=== PATIENT | female | born 1980 | race Asian ===

== ENCOUNTER 2016-07-08 10:36 | Emergency (ER) | payer OTHER ==
[~2016-07-08 10:36] MED LIST: CALTCHW6 PO; COLA100C PO; DOCU10ELUD PO; IBUP80TA PO; LEVO50TA4 PO; LEVO88TA2 PO; PERCOCET FT; PERCOCET PO; PRENTAB66 PO; SYNT25TA PO; ZOFR4SOL PO; [UNRECOGNIZED DRUG - CODE] PO; colace PO
[2016-07-08 12:28] LABS: BASO % 0.5 % (0.0-1.0); EOS # 0.1 K/mm3 (0.0-0.50); EOS % 1.6 % (0.0-3.0); LARGE UNSTAINED CELL # 0.2 K/mm3 (0.0-0.4); LARGE UNSTAINED CELL % 1.8 % (0.0-4.0); LYMPH # 2.8 K/mm3 (1.5-4.5); LYMPH % 33.7 % (24.0-44.0); MEAN CORPUSCULAR HGB CONC 35.4 g/dl (32.0-36.5); MEAN CORPUSCULAR VOLUME 93.1 fl (80.0-96.0); MONO # 0.2 K/mm3 (0.0-0.8); MONO % 2.9 % (0.0-5.0); NEUTROPHILS # 4.9 K/mm3 (1.8-7.7); NEUTROPHILS % 59.5 % (36.0-66.0); PLATELET COUNT, AUTOMATED 227 k/mm3 (150-450); RED CELL DISTRIBUTION WIDTH 11.3 % (11.5-14.5); WHITE BLOOD COUNT 8.2 K/mm3 (4.0-10.0)
[2016-07-08] MEDS ORDERED: KETOROLAC 30 MG/ML VIAL (J1885) As Ordered ONE (12:35)
[2016-07-08] MEDS ORDERED: ONDANSETRON 4MG/2ML VIAL (J2405) As Ordered ONE (12:35)
[2016-07-08 12:36] LABS: ALBUMIN 3.9 GM/DL (3.2-5.2); ALBUMIN/GLOBULIN RATIO 0.89 (1.00-1.93); ALKALINE PHOSPHATASE 73 U/L (45-117); ALT/SGPT 16 U/L (12-78); ANION GAP 8 MEQ/L (8-16); AST/SGOT 16 U/L (15-37); BILIRUBIN,TOTAL 0.5 MG/DL (0.2-1.0); BLOOD UREA NITROGEN 8 MG/DL (7-18); CALCIUM LEVEL 8.6 MG/DL (8.5-10.1); CARBON DIOXIDE LEVEL 25 MEQ/L (21-32); CHLORIDE LEVEL 105 MEQ/L (98-107); CREATININE FOR GFR 0.81 MG/DL (0.55-1.02); GLOMERULAR FILTRATION RATE > 60.0 (>60); GLUCOSE, FASTING 86 MG/DL (70-105); POTASSIUM SERUM 3.9 MEQ/L (3.5-5.1); SODIUM LEVEL 138 MEQ/L (136-145); TOTAL PROTEIN 8.3 GM/DL (6.4-8.2)
--- NOTE | 2016-07-08 13:12 | REP ---
CT abdomen pelvis without IV or oral contrast: Renal stone protocol. History: Renal colic. No comparison studies. Findings: Preliminary rubber boots and shoes repairer radiograph demonstrates an unremarkable bowel gas pattern. The lung bases are clear on axial CT images. There are three small subcentimeter low density foci in the right lobe compatible with small hepatic cysts. The spleen is unremarkable. Neither liver or spleen is enlarged. Adrenal glands are normal bilaterally. No pancreatic abnormality is seen. The gallbladder is unremarkable. There is no evidence of hydronephrosis or intrarenal calculus in either kidney. No ureteral calculus or bladder calculus is seen. There are multiple pelvic phleboliths. No uterine abnormality is seen. There is a small cystic area in the left ovary. Normal right ovary is seen. No significant pelvic mass or adenopathy is seen. Small and large intestinal bowel loops are normal in the abdomen and pelvis. A normal appendix is seen in the right pelvis. No abdominal wall defect is seen. Bone window settings show no bony destructive lesion. Impression: No urinary tract calculus or hydronephrosis seen. Small hepatic cysts seen incidentally. Normal appendix noted. No acute abdominal or pelvic abnormality. Signed by David Goodman MD 07/08/2016 06:35 P
--- NOTE | 2016-07-08 13:30 | REP ---
Abdominal right upper quadrant ultrasound: There is a negative Alvarado's sign to transducer pressure. There is no cholelithiasis, gallbladder wall thickening or pericholecystic fluid. There is no intrahepatic or extrahepatic biliary duct dilatation. The common duct is 6.2 mm diameter. The hepatic parenchyma is homogeneous. Too small hepatic cysts, one measuring up to 10 mm and the other measuring up to 6 mm. The right kidney is normal size measuring 9.9 cm craniocaudad length. There is no hydronephrosis, calculus, mass or cyst. Impression: Essentially negative abdominal right upper quadrant ultrasound. Two hepatic cysts are noted incidentally. There is no free fluid in the right upper quadrant. Signed by Dominic Ríos MD 07/08/2016 01:21 P
--- NOTE | 2016-07-08 14:48 | EDDOCDS ---
Physician Documentation [facility] Name: Alice Corrales Age: 35 yrs Sex: Female : 1980 Arrival Date: 07/08/2016 Time: 10:36 Bed I2 / M2 Private MD: ANYA Disposition: 07/08/16 14:25 Discharged to Home/Self Care. Impression: Abdominal and pelvic pain - with Right Flank Pain, Cystic disease of liver - Small Hepatic Cysts on CT abd/pelvis, Hematuria. - Condition is Stable. - Discharge Instructions: Hematuria, Adult, Pelvic Pain, Female, [id number], Abdominal Pain, Adult, [id number]. - Prescriptions for Naprosyn 500 mg Oral Tablet - take 1 tablet by ORAL route 2 times per day take with food; 30 tablet. Zofran 4 mg Oral Tablet - take 1 tablet by ORAL route 4 times per day As needed; 10 tablet. - Medication Reconciliation, Local Pharmacy Hours form. - Follow up: ANYA; When: 1 - 2 days; Reason: Recheck today's complaints, Continuance of care. Follow up: Emergency Department; Reason: Worsening of conditions. Follow up: Clinton Abernathy; When: Call to arrange an appointment; Reason: Further diagnostic work-up, Recheck today's complaints, Continuance of care. Follow up: Gino Tirado; When: Call to arrange an appointment; Reason: Further diagnostic work-up, Recheck today's complaints, Continuance of care. - Problem is new. - Symptoms have improved. Historical: - Allergies: Augmentin; amoxicillin; PENICILLINS; - Home Meds: 1. Zyrtec 10 mg Oral tab 1 tab once daily 2. Wellbutrin 100 mg Oral tab daily 3. guaifenesin 400 mg Oral tab 1 tab every 4 hours 4. nortriptyline 25 mg Oral cap nightly - PMHx: Seasonal Allergies; Migraines; - PSHx: Right ankle surgery x 2; Breast Augmentation; Tonsillectomy; ; ectopic; - Social history: Smoking status: Patient states former smoker of tobacco. No barriers to communication noted, The patient speaks fluent Faroese, Speaks appropriately for age. - Family history: Not pertinent. - : The pt / caregiver states he / she is not on anticoagulants. Home medication list is obtained from the patient. - Exposure Risk Screening:: None identified. SCORER SINGLE: 07/08 10:52 LMP 06/13/2016 mlb1 Vital Signs: 10:37 BP 122 / 76; Pulse 96; Resp 18; Temp 97.8; Pulse Ox 96% ; Weight 73.48 kg / 162 lbs; elp Height 5 ft. 5 in. (165.10 cm); Pain 7/10; 14:40 BP 99 / 55; Pulse 66; Resp 18; Temp 97.6(TE); Pulse Ox 98% on R/A; Pain 0/10; nb2 10:37 Body Mass Index 26.96 (73.48 kg, 165.10 cm) elp MDM: 11:35 UCG by Nursing ordered. ef1 11:36 UA Ordered. EDMS 11:36 Urine Culture Ordered. EDMS 12:09 UA Reviewed. ef1 12:17 IV Saline Lock ordered. ef1 12:17 NS 0.9% 1000 ml IV at bolus once ordered. ef1 12:17 ketorolac 30 mg IVP once ordered. ef1 12:17 Ondansetron 4 mg IVP once ordered. ef1 12:18 CT ABD & PELVIS: No Contrast Ordered. EDMS 12:18 CBC with Diff Ordered. EDMS 12:18 Complete Comphrensive Metabolic Ordered. EDMS 12:19 Gallbladder US Ordered. EDMS 12:36 Financial registration complete. mm15 12:36 [facility] [place] into [employer] and attached to record. mm15 12:58 CBC with Diff Reviewed. ef1 12:58 Complete Comphrensive Metabolic Reviewed. ef1 14:29 CT ABD & PELVIS: No Contrast Reviewed. ef1 14:29 Gallbladder US Reviewed. ef1 Point of Care Testing: Urine : 11:48 hCG Reading: Negative; Control Reading: Positive; nb2 Ranges: Administered Medications: 12:40 Drug: NS 0.9% 1000 ml [sodium chloride 0.9 % intravenous solution] Route: IV; Rate: ead bolus; Site: right antecubital; 14:46 Follow up: IV Status: Completed infusion [facility] 12:40 Drug: ketorolac 30 mg [ketorolac 30 mg/mL (1 mL) injection solution (1 mL)] Route: IVP; ead Site: right antecubital; 12:42 Drug: Ondansetron 4 mg [ondansetron HCl 2 mg/mL intravenous solution (2 mL)] Route: ead IVP; Site: right antecubital; Signatures: Dispatcher [employer] Cabrera BriggsRN RN Yossi Keyes RN RN mlb1 Fabiana Paiz PAEloyC PAFrancis ef1 Tanmay Bishop mm15 Emi Haywood RN, ead The chart was reviewed and I authenticate all verbal orders and agree with the evaluation and treatment provided.Attachments: 12:36 [facility] Payment Agreement mm15 MTDD
--- NOTE | 2016-07-08 14:48 | EDDOCDS ---
Nurse's Notes [facility] Name: Alice Corrales Age: 35 yrs Sex: Female : 1980 Arrival Date: 07/08/2016 Time: 10:36 Bed I2 / M2 Private MD: ANYA Diagnosis: Abdominal and pelvic pain-with Right Flank Pain;Cystic disease of liver-Small Hepatic Cysts on CT abd/pelvis;Hematuria Presentation: 07/08 10:47 Presenting complaint: Patient states: Suprapubic pain began yesterday worse with mlb1 coughing. Adult Sepsis Screening: The patient does not have new or worsening altered mentation. Patient's respiratory rate is less than 22. Systolic blood pressure is greater than 100. Patient has a qSOFA score of 0- Negative Sepsis Screen. Suicide/Homicide risk assessment- the patient denies having any suicidal and/or homicidal ideations and does not present with any other emotional, behavioral or mental health complaints. 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 Transition of care: patient was not received from another setting of care. 10:47 Acuity: ELISEO Level 3 mlb1 10:47 Method Of Arrival: Walkin/Carried/Asstd mlb1 Triage Assessment: 10:51 General: Appears in no apparent distress, Behavior is appropriate for age, cooperative. mlb1 Pain: Location: suprapubic area Pain currently is 2 out of 10 on a pain scale. HIV screening NA for this visit Offered previously. : Reports discharge white. MEDICAL TECHNOLOGIST BLOOD BANK: 10:52 LMP 06/13/2016 mlb1 Historical: - Allergies: Augmentin; amoxicillin; PENICILLINS; - Home Meds: 1. Zyrtec 10 mg Oral tab 1 tab once daily 2. Wellbutrin 100 mg Oral tab daily 3. guaifenesin 400 mg Oral tab 1 tab every 4 hours 4. nortriptyline 25 mg Oral cap nightly - PMHx: Seasonal Allergies; Migraines; - PSHx: Right ankle surgery x 2; Breast Augmentation; Tonsillectomy; ; ectopic; - Social history: Smoking status: Patient states former smoker of tobacco. No barriers to communication noted, The patient speaks fluent Malawian, Speaks appropriately for age. - Family history: Not pertinent. - : The pt / caregiver states he / she is not on anticoagulants. Home medication list is obtained from the patient. - Exposure Risk Screening:: None identified. Screenin:47 Screening information is obtained from the patient. Fall risk: No risks identified. jmk Assistance ADL's: requires no assistance with activities of daily living. Abuse/DV Screen: The patient / caregiver reports he/she is: not in a situation that causes fear, pain or injury. Nutritional screening: No deficits noted. Advance Directives: Currently, there is no health care proxy. There is no active DNR order. There is no living will. There is no Power of Green Chain Worker. Advance directive information has not previously been placed in an [facility] medical record. Further advance directive information is declined. home support is adequate. Assessment: 11:52 General: Appears in no apparent distress, comfortable, well nourished, well groomed, ead Behavior is appropriate for age, cooperative. Pain: Location: abdomen and suprapubic area Pain currently is 4 out of 10 on a pain scale. At worst was 7 out of 10 on a pain scale. Neurological: No deficits noted. GI: Abdomen is flat, non- distended Bowel sounds present X 4 quads. Abd is soft X 4 quads Abd is tender to palpation in suprapubic area and left lower quadrant Reports lower abdominal pain, nausea, Denies diarrhea, vomiting. : Denies burning with urination, urinary frequency, urgency. Derm: Skin is pink, warm & dry. 12:43 General: Appears in no apparent distress, comfortable, Behavior is appropriate for age, ead cooperative. Pain: Pain currently is 4 out of 10 on a pain scale. GI: Reports lower abdominal pain, Denies nausea, vomiting. Derm: Skin is pink, warm & dry. 13:39 General: states pain has decreased to more of an awareness vs a pain. states 2/10 jmk discomfort only with specific movement.. Vital Signs: 10:37 BP 122 / 76; Pulse 96; Resp 18; Temp 97.8; Pulse Ox 96% ; Weight 73.48 kg; Height 5 ft. elp 5 in. (165.10 cm); Pain 7/10; 14:40 BP 99 / 55; Pulse 66; Resp 18; Temp 97.6(TE); Pulse Ox 98% on R/A; Pain 0/10; nb2 10:37 Body Mass Index 26.96 (73.48 kg, 165.10 cm) elp Vitals: 10:37 Log In Time: July 08, 2016 at 10:30. elp ED Course: 10:37 Patient visited by Clair Lerma PCA. elp 10:37 ANYA is Private Physician. elp 10:37 Patient moved to Waiting elp 10:38 Patient visited by Clair Lerma PCA. elp 10:40 Patient moved to Pre RCE elp 10:47 Patient visited by Yossi Moncada, RN. mlb1 10:48 Triage Initiated mlb1 10:52 Patient visited by Yossi Moncada, JORDON. mlb1 11:34 Fabiana Paiz PA-C is [facility]. ef1 11:34 Yvette Mccormick MD is Attending Physician. ef1 11:35 Patient visited by Fabiana Paiz PA-C. ef1 11:35 Patient moved to I2 / M2 ef1 11:48 Patient visited by Mirta Ball. nb2 11:48 Urine Culture Sent. nb2 11:48 UA Sent. nb2 11:51 Inserted saline lock: 20 gauge in right antecubital area and blood collected. The ead patient tolerated the procedure well. 12:08 Patient visited by Fabiana Paiz PA-C. ef1 12:35 Patient visited by Emi Haywood RN. ead 12:36 COUNTS INCLUDE 234 BEDS AT THE [facility] Payment Agreement was scanned into [employer] and attached to record. mm15 12:44 Patient visited by Emi Haywood,JORDON. ead 12:57 Patient visited by Fabiana Paiz PA-C. ef1 13:34 CT ABD & PELVIS: No Contrast Returned. EDMS 13:35 Patient visited by Fabiana Paiz PA-C. ef1 13:35 Gallbladder US Returned. EDMS 13:41 Patient visited by Cabrera Person,JORDON. jmk 14:19 Patient visited by Fabiana Paiz PA-C. ef1 14:23 ANYA is Referral Physician. ef1 14:23 Clinton Abernathy is Referral Physician. ef1 14:28 Gino Tirado is Referral Physician. ef1 14:40 Patient visited by Mirta Ball. nb2 14:46 Discontinued lock intact, bleeding controlled, pressure dressing applied, No jmk redness/swelling at site. No procedures done that require assistance. Administered Medications: 12:40 Drug: NS 0.9% 1000 ml [sodium chloride 0.9 % intravenous solution] Route: IV; Rate: ead bolus; Site: right antecubital; 14:46 Follow up: IV Status: Completed infusion [facility] 12:40 Drug: ketorolac 30 mg [ketorolac 30 mg/mL (1 mL) injection solution (1 mL)] Route: IVP; ead Site: right antecubital; 12:42 Drug: Ondansetron 4 mg [ondansetron HCl 2 mg/mL intravenous solution (2 mL)] Route: ead IVP; Site: right antecubital; Point of Care Testing: Urine : 11:48 hCG Reading: Negative; Control Reading: Positive; nb2 Ranges: Order Results: Lab Order: UA; SPEC'M 07/08/16 11:42 Test: APPEARANCE, URINE; Value: CLEAR; Range: CLEAR; Status: F Test: COLOR, URINE; Value: YELLOW; Range: YELLOW; Status: F Test: PH,URINE; Value: 6.0; Range: 5.0-9.0; Units: UNITS; Status: F Test: SPECIFIC GRAVITY URINE AUTO; Value: 1.006; Range: 1.002-1.035; Status: F Test: PROTEIN, URINE AUTO; Value: NEGATIVE; Range: NEGATIVE; Units: mg/dL; Status: F Test: GLUCOSE, URINE (UA) AUTO; Value: NEGATIVE; Range: NEGATIVE; Units: mg/dL; Status: F Test: KETONE, URINE AUTO; Value: NEGATIVE; Range: NEGATIVE; Units: mg/dL; Status: F Test: UROBILINOGEN, URINE AUTO; Value: 0.2; Range: 0.0-2.0; Units: mg/dL; Status: F Test: BILIRUBIN, URINE AUTO; Value: NEGATIVE; Range: NEGATIVE; Status: F Test: NITRITE, URINE AUTO; Value: NEGATIVE; Range: NEGATIVE; Status: F Test: LEUKOCYTE ESTERASE, URINE AUTO; Value: TRACE; Range: NEGATIVE; Abnormal: Above high normal; Status: F Test: BLOOD, URINE BLOOD; Value: 1+; Range: NEGATIVE; Abnormal: Above high normal; Status: F Test: WBC, URINE AUTO; Value: 2; Range: 0-3; Units: /HPF; Status: F Test: RBC, URINE AUTO; Value: 2; Range: 0-3; Units: /HPF; Status: F Test: BACTERIA, URINE AUTO; Value: NEGATIVE; Range: NEGATIVE; Status: F Test: SQUAMOUS EPITHELIAL CELL UR AU; Value: 1; Range: 0-6; Units: /HPF; Status: F Test: HYALINE CAST, URINE AUTO; Value: 0; Range: 0-1; Units: /LPF; Status: F Lab Order: CBC with Diff; SPEC'M 07/08/16 11:49 Test: WHITE BLOOD COUNT; Value: 8.2; Range: 4.0-10.0; Units: K/mm3; Status: F Test: RED BLOOD COUNT; Value: 4.51; Range: 4.00-5.40; Units: M/mm3; Status: F Test: HEMOGLOBIN; Value: 14.9; Range: 12.0-16.0; Units: g/dl; Status: F Test: HEMATOCRIT; Value: 41.9; Range: 36.0-47.0; Units: %; Status: F Test: MEAN CORPUSCULAR VOLUME; Value: 93.1; Range: 80.0-96.0; Units: fl; Status: F Test: MEAN CORPUSCULAR HEMOGLOBIN; Value: 33.0; Range: 27.0-33.0; Units: pg; Status: F Test: MEAN CORPUSCULAR HGB CONC; Value: 35.4; Range: 32.0-36.5; Units: g/dl; Status: F Test: RED CELL DISTRIBUTION WIDTH; Value: 11.3; Range: 11.5-14.5; Abnormal: Below low normal; Units: %; Status: F Test: PLATELET COUNT, AUTOMATED; Value: 227; Range: 150-450; Units: k/mm3; Status: F Test: NEUTROPHILS %; Value: 59.5; Range: 36.0-66.0; Units: %; Status: F Test: LYMPH %; Value: 33.7; Range: 24.0-44.0; Units: %; Status: F Test: MONO %; Value: 2.9; Range: 0.0-5.0; Units: %; Status: F Test: EOS %; Value: 1.6; Range: 0.0-3.0; Units: %; Status: F Test: BASO %; Value: 0.5; Range: 0.0-1.0; Units: %; Status: F Test: LARGE UNSTAINED CELL %; Value: 1.8; Range: 0.0-4.0; Units: %; Status: F Test: NEUTROPHILS #; Value: 4.9; Range: 1.8-7.7; Units: K/mm3; Status: F Test: LYMPH #; Value: 2.8; Range: 1.5-4.5; Units: K/mm3; Status: F Test: MONO #; Value: 0.2; Range: 0.0-0.8; Units: K/mm3; Status: F Test: EOS #; Value: 0.1; Range: 0.0-0.50; Units: K/mm3; Status: F Test: BASO #; Value: 0.0; Range: 0.0-0.2; Units: K/mm3; Status: F Test: LARGE UNSTAINED CELL #; Value: 0.2; Range: 0.0-0.4; Units: K/mm3; Status: F Lab Order: Complete Comphrensive Metabolic; SPEC'M 07/08/16 11:49 Test: GLUCOSE, FASTING; Value: 86; Range: 70-105; Units: MG/DL; Status: F Test: BLOOD UREA NITROGEN; Value: 8; Range: 7-18; Units: MG/DL; Status: F Test: CREATININE FOR GFR; Value: 0.81; Range: 0.55-1.02; Units: MG/DL; Status: F Test: GLOMERULAR FILTRATION RATE; Value: > 60.0; Range: >60; Status: F Test: SODIUM LEVEL; Value: 138; Range: 136-145; Units: MEQ/L; Status: F Test: POTASSIUM SERUM; Value: 3.9; Range: 3.5-5.1; Units: MEQ/L; Status: F Test: CHLORIDE LEVEL; Value: 105; Range: 98-107; Units: MEQ/L; Status: F Test: CARBON DIOXIDE LEVEL; Value: 25; Range: 21-32; Units: MEQ/L; Status: F Test: ANION GAP; Value: 8; Range: 8-16; Units: MEQ/L; Status: F Test: CALCIUM LEVEL; Value: 8.6; Range: 8.5-10.1; Units: MG/DL; Status: F Test: AST/SGOT; Value: 16; Range: 15-37; Units: U/L; Status: F Test: ALT/SGPT; Value: 16; Range: 12-78; Units: U/L; Status: F Test: ALKALINE PHOSPHATASE; Value: 73; Range: 45-117; Units: U/L; Status: F Test: BILIRUBIN,TOTAL; Value: 0.5; Range: 0.2-1.0; Units: MG/DL; Status: F Test: TOTAL PROTEIN; Value: 8.3; Range: 6.4-8.2; Abnormal: Above high normal; Units: GM/DL; Status: F Test: ALBUMIN; Value: 3.9; Range: 3.2-5.2; Units: GM/DL; Status: F Test: ALBUMIN/GLOBULIN RATIO; Value: 0.89; Range: 1.00-1.93; Abnormal: Below low normal; Status: F Test Note: ; Units are mL/min/1.73 m2 Chronic Kidney Disease Staging per NKF: Stage I & II GFR >=60 Normal to Mildly Decreased Stage III GFR 30-59 Moderately Decreased Stage IV GFR 15-29 Severely Decreased Stage V GFR <15 Very Little GFR Left ESRD GFR <15 on ELECTRONICS PARTS SALES REPRESENTATIVE Radiology Order: CT ABD & PELVIS: No Contrast Test: CT ABD & PELVIS: No Contrast REASON FOR EXAMINATION: Renal colic; CT abdomen pelvis without IV or oral contrast: Renal stone protocol.; ; History: Renal colic. No comparison studies.; ; Findings: Preliminary care transitions nurse radiograph demonstrates an unremarkable bowel gas; pattern. The lung bases are clear on axial CT images. There are three small; subcentimeter low density foci in the right lobe compatible with small hepatic; cysts. The spleen is unremarkable. Neither liver or spleen is enlarged.; Adrenal glands are normal bilaterally. No pancreatic abnormality is seen. The; gallbladder is unremarkable. There is no evidence of hydronephrosis or; intrarenal calculus in either kidney. No ureteral calculus or bladder calculus; is seen. There are multiple pelvic phleboliths. No uterine abnormality is seen.; There is a small cystic area in the left ovary. Normal right ovary is seen. No; significant pelvic mass or adenopathy is seen. Small and large intestinal bowel; loops are normal in the abdomen and pelvis. A normal appendix is seen in the; right pelvis. No abdominal wall defect is seen. Bone window settings show no; bony destructive lesion.; ; Impression:; ; No urinary tract calculus or hydronephrosis seen. Small hepatic cysts seen; incidentally. Normal appendix noted. No acute abdominal or pelvic abnormality.; ; ; ; ; Unreviewed; Radiology Order: Gallbladder US Test: Gallbladder US REASON FOR EXAMINATION: Biliary Colic; Abdominal right upper quadrant ultrasound:; ; There is a negative Alvarado's sign to transducer pressure. There is no; cholelithiasis, gallbladder wall thickening or pericholecystic fluid. There is; no intrahepatic or extrahepatic biliary duct dilatation. The common duct is 6.2; mm diameter.; ; The hepatic parenchyma is homogeneous. Too small hepatic cysts, one measuring up; to 10 mm and the other measuring up to 6 mm.; ; The right kidney is normal size measuring 9.9 cm craniocaudad length. There is; no hydronephrosis, calculus, mass or cyst.; ; Impression:; ; Essentially negative abdominal right upper quadrant ultrasound. Two hepatic; cysts are noted incidentally. There is no free fluid in the right upper; quadrant.; ; ; Signed by; Dominic Ríos MD 07/08/2016 01:21 P; Outcome: 14:25 Discharge ordered by Provider. ef1 14:46 Discharge Assessment: Patient awake, alert and oriented x 3. No cognitive and/or jmk functional deficits noted. Patient verbalized understanding of disposition instructions. patient administered narcotics - no. The following High Risk Discharge criteria are identified: None. Condition: good. Discharge instructions given to patient, Instructed on discharge instructions, follow up and referral plans. medication usage, Demonstrated understanding of instructions, medications, Pt was receptive of discharge instructions/ teaching. No special radiology studies were completed. Property :Personal belongings accompany Pt. 14:48 Patient left the ED. ross Signatures: Dispatcher [employer] EDMS Cabrera PersonRN Yossi Suarez RN RN mlb1 Fabiana Paiz, PA-C PA-C ef1 Tanmay Bishop mm15 Clair Lerma, ALENA GAME PROGRAMMER Emi Bardales RN RN ead Baart, Nicole nb2 MTDD
--- NOTE | 2016-07-10 15:49 | EDDOCDS ---
Physician Documentation [facility] Name: Alice Corrales Age: 35 yrs Sex: Female : 1980 Arrival Date: 07/08/2016 Time: 10:36 Bed I2 / M2 Private MD: ANYA Disposition: 07/08/16 14:25 Discharged to Home/Self Care. Impression: Abdominal and pelvic pain - with Right Flank Pain, Cystic disease of liver - Small Hepatic Cysts on CT abd/pelvis, Hematuria. - Condition is Stable. - Discharge Instructions: Hematuria, Adult, Pelvic Pain, Female, [id number], Abdominal Pain, Adult, [id number]. - Prescriptions for Naprosyn 500 mg Oral Tablet - take 1 tablet by ORAL route 2 times per day take with food; 30 tablet. Zofran 4 mg Oral Tablet - take 1 tablet by ORAL route 4 times per day As needed; 10 tablet. - Medication Reconciliation, Local Pharmacy Hours form. - Follow up: ANYA; When: 1 - 2 days; Reason: Recheck today's complaints, Continuance of care. Follow up: Emergency Department; Reason: Worsening of conditions. Follow up: Clinton Abernathy; When: Call to arrange an appointment; Reason: Further diagnostic work-up, Recheck today's complaints, Continuance of care. Follow up: Gino Tirado; When: Call to arrange an appointment; Reason: Further diagnostic work-up, Recheck today's complaints, Continuance of care. - Problem is new. - Symptoms have improved. Historical: - Allergies: Augmentin; amoxicillin; PENICILLINS; - Home Meds: 1. Zyrtec 10 mg Oral tab 1 tab once daily 2. Wellbutrin 100 mg Oral tab daily 3. guaifenesin 400 mg Oral tab 1 tab every 4 hours 4. nortriptyline 25 mg Oral cap nightly - PMHx: Seasonal Allergies; Migraines; - PSHx: Right ankle surgery x 2; Breast Augmentation; Tonsillectomy; ; ectopic; - Social history: Smoking status: Patient states former smoker of tobacco. No barriers to communication noted, The patient speaks fluent Persian, Speaks appropriately for age. - Family history: Not pertinent. - : The pt / caregiver states he / she is not on anticoagulants. Home medication list is obtained from the patient. - Exposure Risk Screening:: None identified. 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 5 in. (165.10 cm); Pain 7/10; 14:40 BP 99 / 55; Pulse 66; Resp 18; Temp 97.6(TE); Pulse Ox 98% on R/A; Pain 0/10; nb2 10:37 Body Mass Index 26.96 (73.48 kg, 165.10 cm) elp MDM: 11:35 UCG by Nursing ordered. ef1 11:36 UA Ordered. EDMS 11:36 Urine Culture Ordered. EDMS 12:09 UA Reviewed. ef1 12:17 IV Saline Lock ordered. ef1 12:17 NS 0.9% 1000 ml IV at bolus once ordered. ef1 12:17 ketorolac 30 mg IVP once ordered. ef1 12:17 Ondansetron 4 mg IVP once ordered. ef1 12:18 CT ABD & PELVIS: No Contrast Ordered. EDMS 12:18 CBC with Diff Ordered. EDMS 12:18 Complete Comphrensive Metabolic Ordered. EDMS 12:19 Gallbladder US Ordered. EDMS 12:36 Financial registration complete. mm15 12:36 [facility] was scanned into Clevers[employer] and attached to record. mm15 12:58 CBC with Diff Reviewed. ef1 12:58 Complete Comphrensive Metabolic Reviewed. ef1 14:29 CT ABD & PELVIS: No Contrast Reviewed. ef1 14:29 Gallbladder US Reviewed. ef1 15:31 T-Sheet-- Draft Copy was scanned into Clevers[employer] and attached to record. gb 15:32 Radiology Report was scanned into Clevers[employer] and attached to record. gb Point of Care Testing: Urine : 11:48 hCG Reading: Negative; Control Reading: Positive; nb2 Ranges: Administered Medications: 12:40 Drug: NS 0.9% 1000 ml [sodium chloride 0.9 % intravenous solution] Route: IV; Rate: ead bolus; Site: right antecubital; 14:46 Follow up: IV Status: Completed infusion k 12:40 Drug: ketorolac 30 mg [ketorolac 30 mg/mL (1 mL) injection solution (1 mL)] Route: IVP; ead Site: right antecubital; 12:42 Drug: Ondansetron 4 mg [ondansetron HCl 2 mg/mL intravenous solution (2 mL)] Route: ead IVP; Site: right antecubital; Signatures: Dispatcher [employer] Cabrera Briggs RN RN Yanique Rossi, Suresh Reg Yossi Zeng RN RN mlb1 Fabiana Paiz, PA-C PA-C ef1 Tanmay Bishop mm15 Emi Haywood RN The chart was reviewed and I authenticate all verbal orders and agree with the evaluation and treatment provided.Attachments: 12:36 [facility] Agreement mm15 15:31 T-Sheet-- Draft Copy gb Chart Complete MTDD
--- NOTE | 2016-07-10 15:49 | EDDOCDS ---
Physician Documentation [facility] Name: Alice Corrales Age: 35 yrs Sex: Female : 1980 Arrival Date: 07/08/2016 Time: 10:36 Bed I2 / M2 Private MD: ANYA Disposition: 07/08/16 14:25 Discharged to Home/Self Care. Impression: Abdominal and pelvic pain - with Right Flank Pain, Cystic disease of liver - Small Hepatic Cysts on CT abd/pelvis, Hematuria. - Condition is Stable. - Discharge Instructions: Hematuria, Adult, Pelvic Pain, Female, [id number], Abdominal Pain, Adult, [id number]. - Prescriptions for Naprosyn 500 mg Oral Tablet - take 1 tablet by ORAL route 2 times per day take with food; 30 tablet. Zofran 4 mg Oral Tablet - take 1 tablet by ORAL route 4 times per day As needed; 10 tablet. - Medication Reconciliation, Local Pharmacy Hours form. - Follow up: ANYA; When: 1 - 2 days; Reason: Recheck today's complaints, Continuance of care. Follow up: Emergency Department; Reason: Worsening of conditions. Follow up: Clinton Abernathy; When: Call to arrange an appointment; Reason: Further diagnostic work-up, Recheck today's complaints, Continuance of care. Follow up: Gino Tirado; When: Call to arrange an appointment; Reason: Further diagnostic work-up, Recheck today's complaints, Continuance of care. - Problem is new. - Symptoms have improved. Historical: - Allergies: Augmentin; amoxicillin; PENICILLINS; - Home Meds: 1. Zyrtec 10 mg Oral tab 1 tab once daily 2. Wellbutrin 100 mg Oral tab daily 3. guaifenesin 400 mg Oral tab 1 tab every 4 hours 4. nortriptyline 25 mg Oral cap nightly - PMHx: Seasonal Allergies; Migraines; - PSHx: Right ankle surgery x 2; Breast Augmentation; Tonsillectomy; ; ectopic; - Social history: Smoking status: Patient states former smoker of tobacco. No barriers to communication noted, The patient speaks fluent Occitan, Speaks appropriately for age. - Family history: Not pertinent. - : The pt / caregiver states he / she is not on anticoagulants. Home medication list is obtained from the patient. - Exposure Risk Screening:: None identified. 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 5 in. (165.10 cm); Pain 7/10; 14:40 BP 99 / 55; Pulse 66; Resp 18; Temp 97.6(TE); Pulse Ox 98% on R/A; Pain 0/10; nb2 10:37 Body Mass Index 26.96 (73.48 kg, 165.10 cm) elp MDM: 11:35 UCG by Nursing ordered. ef1 11:36 UA Ordered. EDMS 11:36 Urine Culture Ordered. EDMS 12:09 UA Reviewed. ef1 12:17 IV Saline Lock ordered. ef1 12:17 NS 0.9% 1000 ml IV at bolus once ordered. ef1 12:17 ketorolac 30 mg IVP once ordered. ef1 12:17 Ondansetron 4 mg IVP once ordered. ef1 12:18 CT ABD & PELVIS: No Contrast Ordered. EDMS 12:18 CBC with Diff Ordered. EDMS 12:18 Complete Comphrensive Metabolic Ordered. EDMS 12:19 Gallbladder US Ordered. EDMS 12:36 Financial registration complete. mm15 12:36 [facility] [place] Payment Agreement was scanned into [employer]here and attached to record. mm15 12:58 CBC with Diff Reviewed. ef1 12:58 Complete Comphrensive Metabolic Reviewed. ef1 14:29 CT ABD & PELVIS: No Contrast Reviewed. ef1 14:29 Gallbladder US Reviewed. ef1 15:31 T-Sheet-- Draft Copy was scanned into [employer]here and attached to record. gb 15:32 Radiology Report was scanned into [employer]oSphere and attached to record. gb Point of Care Testing: Urine : 11:48 hCG Reading: Negative; Control Reading: Positive; nb2 Ranges: Administered Medications: 12:40 Drug: NS 0.9% 1000 ml [sodium chloride 0.9 % intravenous solution] Route: IV; Rate: ead bolus; Site: right antecubital; 14:46 Follow up: IV Status: Completed infusion k 12:40 Drug: ketorolac 30 mg [ketorolac 30 mg/mL (1 mL) injection solution (1 mL)] Route: IVP; ead Site: right antecubital; 12:42 Drug: Ondansetron 4 mg [ondansetron HCl 2 mg/mL intravenous solution (2 mL)] Route: ead IVP; Site: right antecubital; Signatures: Dispatcher [employer] Cabrera Briggs RN RN Yanique Rossi, Suresh Reg Yossi Zeng RN RN mlb1 Fabiana Paiz, PA-C PA-C ef1 Tanmay Bishop mm15 Emi Haywood RN The chart was reviewed and I authenticate all verbal orders and agree with the evaluation and treatment provided.Attachments: 12:36 [facility] Payment Agreement mm15 15:31 T-Sheet-- Draft Copy gb Chart Complete MTDD
--- NOTE | 2016-07-10 15:49 | EDDOCDS ---
Nurse's Notes [facility] Name: Alice Corrales Age: 35 yrs Sex: Female : 1980 Arrival Date: 07/08/2016 Time: 10:36 Bed I2 / M2 Private MD: ANYA Diagnosis: Abdominal and pelvic pain-with Right Flank Pain;Cystic disease of liver-Small Hepatic Cysts on CT abd/pelvis;Hematuria Presentation: 07/08 10:47 Presenting complaint: Patient states: Suprapubic pain began yesterday worse with mlb1 coughing. Adult Sepsis Screening: The patient does not have new or worsening altered mentation. Patient's respiratory rate is less than 22. Systolic blood pressure is greater than 100. Patient has a qSOFA score of 0- Negative Sepsis Screen. Suicide/Homicide risk assessment- the patient denies having any suicidal and/or homicidal ideations and does not present with any other emotional, behavioral or mental health complaints. 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 Transition of care: patient was not received from another setting of care. 10:47 Acuity: ELISEO Level 3 mlb1 10:47 Method Of Arrival: Walkin/Carried/Asstd mlb1 Triage Assessment: 10:51 General: Appears in no apparent distress, Behavior is appropriate for age, cooperative. mlb1 Pain: Location: suprapubic area Pain currently is 2 out of 10 on a pain scale. HIV screening NA for this visit Offered previously. : Reports discharge white. 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 Zyrtec 10 mg Oral tab 1 tab once daily 2. Wellbutrin 100 mg Oral tab daily 3. guaifenesin 400 mg Oral tab 1 tab every 4 hours 4. nortriptyline 25 mg Oral cap nightly - PMHx: Seasonal Allergies; Migraines; - PSHx: Right ankle surgery x 2; Breast Augmentation; Tonsillectomy; ; ectopic; - Social history: Smoking status: Patient states former smoker of tobacco. No barriers to communication noted, The patient speaks fluent Tristanian, Speaks appropriately for age. - Family history: Not pertinent. - : The pt / caregiver states he / she is not on anticoagulants. Home medication list is obtained from the patient. - Exposure Risk Screening:: None identified. Screenin:47 Screening information is obtained from the patient. Fall risk: No risks identified. jmk Assistance ADL's: requires no assistance with activities of daily living. Abuse/DV Screen: The patient / caregiver reports he/she is: not in a situation that causes fear, pain or injury. Nutritional screening: No deficits noted. Advance Directives: Currently, there is no health care proxy. There is no active DNR order. There is no living will. There is no Power of [place]. Advance directive information has not previously been placed in an [facility] medical record. Further advance directive information is declined. home support is adequate. Assessment: 11:52 General: Appears in no apparent distress, comfortable, well nourished, well groomed, ead Behavior is appropriate for age, cooperative. Pain: Location: abdomen and suprapubic area Pain currently is 4 out of 10 on a pain scale. At worst was 7 out of 10 on a pain scale. Neurological: No deficits noted. GI: Abdomen is flat, non- distended Bowel sounds present X 4 quads. Abd is soft X 4 quads Abd is tender to palpation in suprapubic area and left lower quadrant Reports lower abdominal pain, nausea, Denies diarrhea, vomiting. : Denies burning with urination, urinary frequency, urgency. Derm: Skin is pink, warm & dry. 12:43 General: Appears in no apparent distress, comfortable, Behavior is appropriate for age, ead cooperative. Pain: Pain currently is 4 out of 10 on a pain scale. GI: Reports lower abdominal pain, Denies nausea, vomiting. Derm: Skin is pink, warm & dry. 13:39 General: states pain has decreased to more of an awareness vs a pain. states 2/10 jmk discomfort only with specific movement.. Vital Signs: 10:37 BP 122 / 76; Pulse 96; Resp 18; Temp 97.8; Pulse Ox 96% ; Weight 73.48 kg; Height 5 ft. elp 5 in. (165.10 cm); Pain 7/10; 14:40 BP 99 / 55; Pulse 66; Resp 18; Temp 97.6(TE); Pulse Ox 98% on R/A; Pain 0/10; nb2 10:37 Body Mass Index 26.96 (73.48 kg, 165.10 cm) elp Vitals: 10:37 Log In Time: July 08, 2016 at 10:30. elp ED Course: 10:37 Patient visited by Clair Lerma PCA. elp 10:37 ANYA is Private Physician. elp 10:37 Patient moved to Waiting elp 10:38 Patient visited by Clair Lerma PCA. elp 10:40 Patient moved to Pre RCE elp 10:47 Patient visited by Yossi Moncada, RN. mlb1 10:48 Triage Initiated mlb1 10:52 Patient visited by Yossi Moncada, JORDON. mlb1 11:34 [facility] ef1 11:34 Yvette Mccormick MD is Attending Physician. ef1 11:35 Patient visited by Fabiana Paiz PA-C. ef1 11:35 Patient moved to I2 / M2 ef1 11:48 Patient visited by Mirta Ball. nb2 11:48 Urine Culture Sent. nb2 11:48 UA Sent. nb2 11:51 Inserted saline lock: 20 gauge in right antecubital area and blood collected. The ead patient tolerated the procedure well. 12:08 Patient visited by Fabiana Paiz PA-C. ef1 12:35 Patient visited by Emi Haywood RN. ead 12:36 [facility] Payment Agreement was scanned into [employer] and attached to record. mm15 12:44 Patient visited by Emi Haywood,JORDON. ead 12:57 Patient visited by Fabiana Paiz PA-C. ef1 13:34 CT ABD & PELVIS: No Contrast Returned. EDMS 13:35 Patient visited by Fabiaan Paiz PA-C. ef1 13:35 Gallbladder US Returned. EDMS 13:41 Patient visited by Cabrera Person,JORDON. jmk 14:19 Patient visited by Fabiana Paiz PA-C. ef1 14:23 ANYA is Referral Physician. ef1 14:23 Clinton Abernathy is Referral Physician. ef1 14:28 Gino Tirado is Referral Physician. ef1 14:40 Patient visited by Mirta Ball. nb2 14:46 Discontinued lock intact, bleeding controlled, pressure dressing applied, No jmk redness/swelling at site. No procedures done that require assistance. 15:31 T-Sheet-- Draft Copy was scanned into [employer] and attached to record. gb 15:32 Radiology Report was scanned into [employer] and attached to record. gb 19:10 CT ABD & PELVIS: No Contrast Returned. EDMS Administered Medications: 12:40 Drug: NS 0.9% 1000 ml [sodium chloride 0.9 % intravenous solution] Route: IV; Rate: ead bolus; Site: right antecubital; 14:46 Follow up: IV Status: Completed infusion k 12:40 Drug: ketorolac 30 mg [ketorolac 30 mg/mL (1 mL) injection solution (1 mL)] Route: IVP; ead Site: right antecubital; 12:42 Drug: Ondansetron 4 mg [ondansetron HCl 2 mg/mL intravenous solution (2 mL)] Route: ead IVP; Site: right antecubital; Point of Care Testing: Urine : 11:48 hCG Reading: Negative; Control Reading: Positive; nb2 Ranges: Order Results: Lab Order: UA; SPEC'M 07/08/16 11:42 Test: APPEARANCE, URINE; Value: CLEAR; Range: CLEAR; Status: F Test: COLOR, URINE; Value: YELLOW; Range: YELLOW; Status: F Test: PH,URINE; Value: 6.0; Range: 5.0-9.0; Units: UNITS; Status: F Test: SPECIFIC GRAVITY URINE AUTO; Value: 1.006; Range: 1.002-1.035; Status: F Test: PROTEIN, URINE AUTO; Value: NEGATIVE; Range: NEGATIVE; Units: mg/dL; Status: F Test: GLUCOSE, URINE (UA) AUTO; Value: NEGATIVE; Range: NEGATIVE; Units: mg/dL; Status: F Test: KETONE, URINE AUTO; Value: NEGATIVE; Range: NEGATIVE; Units: mg/dL; Status: F Test: UROBILINOGEN, URINE AUTO; Value: 0.2; Range: 0.0-2.0; Units: mg/dL; Status: F Test: BILIRUBIN, URINE AUTO; Value: NEGATIVE; Range: NEGATIVE; Status: F Test: NITRITE, URINE AUTO; Value: NEGATIVE; Range: NEGATIVE; Status: F Test: LEUKOCYTE ESTERASE, URINE AUTO; Value: TRACE; Range: NEGATIVE; Abnormal: Above high normal; Status: F Test: BLOOD, URINE BLOOD; Value: 1+; Range: NEGATIVE; Abnormal: Above high normal; Status: F Test: WBC, URINE AUTO; Value: 2; Range: 0-3; Units: /HPF; Status: F Test: RBC, URINE AUTO; Value: 2; Range: 0-3; Units: /HPF; Status: F Test: BACTERIA, URINE AUTO; Value: NEGATIVE; Range: NEGATIVE; Status: F Test: SQUAMOUS EPITHELIAL CELL UR AU; Value: 1; Range: 0-6; Units: /HPF; Status: F Test: HYALINE CAST, URINE AUTO; Value: 0; Range: 0-1; Units: /LPF; Status: F Lab Order: Urine Culture; SPEC'M 07/08/16 11:42 Test: URINE CULTURE; Value: <EXTERNAL COMMENT eCWMed> FULL REPORT IN LAB NOTES (eCW and Medent).; Status: F Test: URINE CULTURE; Value: URINE CULTURE RESULT NO GROWTH CLINICAL SIGNIFICANCE 1 ORGANISM; Status: F Lab Order: CBC with Diff; SPEC'M 07/08/16 11:49 Test: WHITE BLOOD COUNT; Value: 8.2; Range: 4.0-10.0; Units: K/mm3; Status: F Test: RED BLOOD COUNT; Value: 4.51; Range: 4.00-5.40; Units: M/mm3; Status: F Test: HEMOGLOBIN; Value: 14.9; Range: 12.0-16.0; Units: g/dl; Status: F Test: HEMATOCRIT; Value: 41.9; Range: 36.0-47.0; Units: %; Status: F Test: MEAN CORPUSCULAR VOLUME; Value: 93.1; Range: 80.0-96.0; Units: fl; Status: F Test: MEAN CORPUSCULAR HEMOGLOBIN; Value: 33.0; Range: 27.0-33.0; Units: pg; Status: F Test: MEAN CORPUSCULAR HGB CONC; Value: 35.4; Range: 32.0-36.5; Units: g/dl; Status: F Test: RED CELL DISTRIBUTION WIDTH; Value: 11.3; Range: 11.5-14.5; Abnormal: Below low normal; Units: %; Status: F Test: PLATELET COUNT, AUTOMATED; Value: 227; Range: 150-450; Units: k/mm3; Status: F Test: NEUTROPHILS %; Value: 59.5; Range: 36.0-66.0; Units: %; Status: F Test: LYMPH %; Value: 33.7; Range: 24.0-44.0; Units: %; Status: F Test: MONO %; Value: 2.9; Range: 0.0-5.0; Units: %; Status: F Test: EOS %; Value: 1.6; Range: 0.0-3.0; Units: %; Status: F Test: BASO %; Value: 0.5; Range: 0.0-1.0; Units: %; Status: F Test: LARGE UNSTAINED CELL %; Value: 1.8; Range: 0.0-4.0; Units: %; Status: F Test: NEUTROPHILS #; Value: 4.9; Range: 1.8-7.7; Units: K/mm3; Status: F Test: LYMPH #; Value: 2.8; Range: 1.5-4.5; Units: K/mm3; Status: F Test: MONO #; Value: 0.2; Range: 0.0-0.8; Units: K/mm3; Status: F Test: EOS #; Value: 0.1; Range: 0.0-0.50; Units: K/mm3; Status: F Test: BASO #; Value: 0.0; Range: 0.0-0.2; Units: K/mm3; Status: F Test: LARGE UNSTAINED CELL #; Value: 0.2; Range: 0.0-0.4; Units: K/mm3; Status: F Lab Order: Complete Comphrensive Metabolic; SPEC'M 07/08/16 11:49 Test: GLUCOSE, FASTING; Value: 86; Range: 70-105; Units: MG/DL; Status: F Test: BLOOD UREA NITROGEN; Value: 8; Range: 7-18; Units: MG/DL; Status: F Test: CREATININE FOR GFR; Value: 0.81; Range: 0.55-1.02; Units: MG/DL; Status: F Test: GLOMERULAR FILTRATION RATE; Value: > 60.0; Range: >60; Status: F Test: SODIUM LEVEL; Value: 138; Range: 136-145; Units: MEQ/L; Status: F Test: POTASSIUM SERUM; Value: 3.9; Range: 3.5-5.1; Units: MEQ/L; Status: F Test: CHLORIDE LEVEL; Value: 105; Range: 98-107; Units: MEQ/L; Status: F Test: CARBON DIOXIDE LEVEL; Value: 25; Range: 21-32; Units: MEQ/L; Status: F Test: ANION GAP; Value: 8; Range: 8-16; Units: MEQ/L; Status: F Test: CALCIUM LEVEL; Value: 8.6; Range: 8.5-10.1; Units: MG/DL; Status: F Test: AST/SGOT; Value: 16; Range: 15-37; Units: U/L; Status: F Test: ALT/SGPT; Value: 16; Range: 12-78; Units: U/L; Status: F Test: ALKALINE PHOSPHATASE; Value: 73; Range: 45-117; Units: U/L; Status: F Test: BILIRUBIN,TOTAL; Value: 0.5; Range: 0.2-1.0; Units: MG/DL; Status: F Test: TOTAL PROTEIN; Value: 8.3; Range: 6.4-8.2; Abnormal: Above high normal; Units: GM/DL; Status: F Test: ALBUMIN; Value: 3.9; Range: 3.2-5.2; Units: GM/DL; Status: F Test: ALBUMIN/GLOBULIN RATIO; Value: 0.89; Range: 1.00-1.93; Abnormal: Below low normal; Status: F Test Note: ; Units are mL/min/1.73 m2 Chronic Kidney Disease Staging per NKF: Stage I & II GFR >=60 Normal to Mildly Decreased Stage III GFR 30-59 Moderately Decreased Stage IV GFR 15-29 Severely Decreased Stage V GFR <15 Very Little GFR Left ESRD GFR <15 on TRACK PATROL Radiology Order: CT ABD & PELVIS: No Contrast Test: CT ABD & PELVIS: No Contrast REASON FOR EXAMINATION: Renal colic; CT abdomen pelvis without IV or oral contrast: Renal stone protocol.; ; History: Renal colic. No comparison studies.; ; Findings: Preliminary radiology manager radiograph demonstrates an unremarkable bowel gas; pattern. The lung bases are clear on axial CT images. There are three small; subcentimeter low density foci in the right lobe compatible with small hepatic; cysts. The spleen is unremarkable. Neither liver or spleen is enlarged.; Adrenal glands are normal bilaterally. No pancreatic abnormality is seen. The; gallbladder is unremarkable. There is no evidence of hydronephrosis or; intrarenal calculus in either kidney. No ureteral calculus or bladder calculus; is seen. There are multiple pelvic phleboliths. No uterine abnormality is seen.; There is a small cystic area in the left ovary. Normal right ovary is seen. No; significant pelvic mass or adenopathy is seen. Small and large intestinal bowel; loops are normal in the abdomen and pelvis. A normal appendix is seen in the; right pelvis. No abdominal wall defect is seen. Bone window settings show no; bony destructive lesion.; ; Impression:; ; No urinary tract calculus or hydronephrosis seen. Small hepatic cysts seen; incidentally. Normal appendix noted. No acute abdominal or pelvic abnormality.; ; ; Signed by; David Goodman MD 07/08/2016 06:35 P; Radiology Order: Gallbladder US Test: Gallbladder US REASON FOR EXAMINATION: Biliary Colic; Abdominal right upper quadrant ultrasound:; ; There is a negative Alvarado's sign to transducer pressure. There is no; cholelithiasis, gallbladder wall thickening or pericholecystic fluid. There is; no intrahepatic or extrahepatic biliary duct dilatation. The common duct is 6.2; mm diameter.; ; The hepatic parenchyma is homogeneous. Too small hepatic cysts, one measuring up; to 10 mm and the other measuring up to 6 mm.; ; The right kidney is normal size measuring 9.9 cm craniocaudad length. There is; no hydronephrosis, calculus, mass or cyst.; ; Impression:; ; Essentially negative abdominal right upper quadrant ultrasound. Two hepatic; cysts are noted incidentally. There is no free fluid in the right upper; quadrant.; ; ; Signed by; Dominic Ríos MD 07/08/2016 01:21 P; Outcome: 14:25 Discharge ordered by Provider. ef1 14:46 Discharge Assessment: Patient awake, alert and oriented x 3. No cognitive and/or jmk functional deficits noted. Patient verbalized understanding of disposition instructions. patient administered narcotics - no. The following High Risk Discharge criteria are identified: None. Condition: good. Discharge instructions given to patient, Instructed on discharge instructions, follow up and referral plans. medication usage, Demonstrated understanding of instructions, medications, Pt was receptive of discharge instructions/ teaching. No special radiology studies were completed. Property :Personal belongings accompany Pt. 14:48 Patient left the ED. ross Signatures: Dispatcher Med[employer] EDMS Cabrera Person,JORDON RN Yanique Rossi, Reg Reg gb Yossi Moncada RN RN mlb1 Fabiana Paiz, PA-C PA-C ef1 Tanmay Bishop mm15 Clair Lerma, Emi Hope RN RN Mirta Cedeno nb2 Chart Complete MTDD
== END 2016-07-08 14:48 | disposition home or self-care (01) ==
LOC: M ED 10:36
DX: K76.89 Other specified diseases of liver (principal); R10.2 Pelvic and perineal pain; R31.9 Hematuria, unspecified; G43.909 Migraine, unspecified, not intractable, without status migrainosus; J30.2 Other seasonal allergic rhinitis; Z79.899 Other long term (current) drug therapy; Z88.0 Allergy status to penicillin; Z88.1 Allergy status to other antibiotic agents; Z87.891 Personal history of nicotine dependence
CPT/HCPCS: 36415; 74176; 76705; 80053; 81001; 81025; 85025; 87086; 96361; 96374; 96375; 99284; J1885; J2405

== ENCOUNTER → 2019-03-31 | Outpatient (REF) | payer OTHER ==
[~2019-03-31] MED LIST changes: -COLA100C PO; +COLA100C5 PO; -DOCU10ELUD PO; +DOCU5LIQ PO; +FERR1TAB7 PO; +OXYC1TAB23 FT; +OXYC1TAB23 PO; -PERCOCET FT; -[UNRECOGNIZED DRUG - CODE] PO
[2019-04-04 14:20] LABS: HPV HYBRID CAPTURE II Negative (Negative)
== END ==
LOC: M SFHCWAGY 10:16
PROVIDERS: ATTEND Nurse Practitioner Women's Health
DX: Z12.4 Encounter for screening for malignant neoplasm of cervix (principal)
CPT/HCPCS: 87624; G0123

== ENCOUNTER → 2019-03-31 | Outpatient (CLI) | payer OTHER ==
--- NOTE | 2019-03-31 13:06 | REPMRS ---
Patient History The patient states she had a clinical breast exam in 03/2019. Patient had first child at age 32. No known family history of cancer. Retro-pectoral saline implants in both breasts, November 26, 2001. Digital Woman Screen Mammo: March 31, 2019 - Exam #: [id number] Bilateral CC and MLO view(s) were taken. Technologist: Tatiana Mckeon, Technologist No prior studies available for comparison. FINDINGS: The breast tissue is heterogeneously dense. This may lower the sensitivity of mammography. The visualized implant margins are smooth. Breast parenchymal density pattern is essentially symmetric. No dominant mass, grouped microcalcification, or architectural distortion is evident on either side. 3-D tomosynthesis shows no additional findings. Assessment: BI-RADS/ACR category 2 mammogram. Benign Findings. Recommendation Routine screening mammogram of both breasts in 1 year (for women over age 40). This patient's Lifetime Breast Cancer RIsk is estimated at 14.3 %. This mammogram was interpreted with the aid of an FDA-approved computer-aided dectection system. Electronically Signed By: Lloyd Goodman MD 03/31/19 1412
== END ==
LOC: M WHC 09:44
PROVIDERS: ATTEND Physician Assistant Medical
DX: Z12.31 Encounter for screening mammogram for malignant neoplasm of breast (principal)

== ENCOUNTER → 2020-05-20 | Outpatient (CLI) | payer OTHER ==
--- NOTE | 2020-05-20 11:15 | REPMRS ---
Patient History The patient states she has not had a clinical breast exam in over a year. No known family history of cancer. Retro-pectoral saline implants in both breasts, November 26, 2001. Digital Woman Screen Mammo: May 20, 2020 - Exam #: [id number] Bilateral CC and MLO view(s) were taken. Technologist: Rosina Wilkes, Technologist Prior study comparison: March 31, 2019, bilateral digital woman screen mammo performed at [facility]. FINDINGS: The breast tissue is heterogeneously dense. This may lower the sensitivity of mammography. The visualized implant margins are smooth. Breast parenchymal density pattern is essentially symmetric. No dominant mass, grouped microcalcification, or architectural distortion is evident on either side. 3-D tomosynthesis shows no additional findings. Volpara density pattern D. No significant changes when compared with prior studies. Assessment: BI-RADS/ACR category 2 mammogram. Benign Findings. Recommendation Routine screening mammogram of both breasts in 1 year (for women over age 40). This patient's [facility] Lifetime Breast Cancer RIsk is estimated at 14.2 %. This mammogram was interpreted with the aid of an FDA-approved computer-aided dectection system. Electronically Signed By: Lloyd Goodman MD 05/20/20 1643
--- NOTE | 2020-05-20 15:18 | REP ---
INDICATION: DENSR BREAST TISSUE. Bilateral screening breast sonography. COMPARISON: Comparison is made with today's mammography.. TECHNIQUE: Bilateral breast screening sonography. FINDINGS: Heterogeneous fibroglandular background echotexture is seen. Implant margins are smooth is visualized. Multiple right breast cysts are seen. Largest of these is in the right breast 4 o'clock position, 4 cm from the nipple measuring 1.2 cm in greatest diameter. A normal appearing benign lymph node is seen in the right axilla measuring 2.2 x 1.6 x 0.6 cm. 1 mm cortical margin. In the left breast there are multiple tiny cystic structures. The most prominent of these is at 11 o'clock 3 cm from the nipple measuring 0.8 cm in greatest diameter. A normal appearing lymph node is visible in the left axilla measuring 2.8 x 1.0 x 0.8 cm. Cortical margin less than 3 mm. No suspicious sonographic finding is seen in either breast or either axilla. IMPRESSION: BI-RADS category 2 benign findings. <Electronically signed by Lloyd Goodman > 05/20/20 0730
== END ==
LOC: M WHC 10:12
PROVIDERS: ATTEND Physician Assistant Medical
DX: Z12.31 Encounter for screening mammogram for malignant neoplasm of breast (principal); R92.2 Inconclusive mammogram

== ENCOUNTER → 2021-07-17 | Outpatient (CLI) | payer OTHER | LOC: M WHC 08:19 | PROVIDERS: ATTEND Nurse Practitioner Primary Care | DX: Z12.31 Encounter for screening mammogram for malignant neoplasm of breast (principal) ==

== ENCOUNTER → 2021-09-01 | Outpatient (CLI) | payer OTHER | LOC: M WHC 07:24 | PROVIDERS: ATTEND Nurse Practitioner Primary Care | DX: N60.11 Diffuse cystic mastopathy of right breast (principal); N60.12 Diffuse cystic mastopathy of left breast ==

== ENCOUNTER → 2022-11-03 | Outpatient (CLI) | payer OTHER | LOC: M WHC 10:26 | PROVIDERS: ATTEND Family Medicine | DX: Z12.31 Encounter for screening mammogram for malignant neoplasm of breast (principal) ==

== ENCOUNTER → 2023-03-23 | Outpatient (REF) | payer OTHER | LOC: M SFHCWAGY 18:06 | PROVIDERS: ATTEND Nurse Practitioner Family | DX: Z12.4 Encounter for screening for malignant neoplasm of cervix (principal) | CPT/HCPCS: 87624; G0123 ==

== ENCOUNTER → 2024-03-29 | Outpatient (CLI) | payer OTHER | LOC: M WHC 09:47 | PROVIDERS: ATTEND Nurse Practitioner Family | DX: Z12.31 Encounter for screening mammogram for malignant neoplasm of breast (principal); R92.333 Mammographic heterogeneous density, bilateral breasts ==

== ENCOUNTER → 2025-04-02 | Outpatient (CLI) | payer OTHER | LOC: M WHC 11:07 | PROVIDERS: ATTEND Nurse Practitioner Family | DX: Z12.31 Encounter for screening mammogram for malignant neoplasm of breast (principal); R92.333 Mammographic heterogeneous density, bilateral breasts; Z98.82 Breast implant status ==